=== PATIENT | male | born 1970 | race Caucasian/White ===

== ENCOUNTER 2018-12-26 15:05 | Emergency (ER) | payer OTHER ==
[~2018-12-26 15:05] MED LIST: ALBU90OI6 INH; ALBU90OI61 INH; BLOOD PRESSURE MED; Benadryl 50 mg50 MG PO; CEFU250 PO; CEPH500 PO; Crutch1 EACH MISC; DIAZ5 PO; HYDACE5 PO; LISHYD1012 PO; METPRE4DP PO; NAPR500 PO; Naprosyn500 MG PO; OXYACE5T PO; Pepcid20 MG PO; Percocet 10-321 EACH PO; Prednisone20 MG PO; RXERYTOPTH OP; RXHYD5325 PO; RXNEOPOLHC AS; Zithromax250 MG PO
== END 2018-12-26 15:25 | disposition left against medical advice (07) ==
LOC: ER 15:05
DX: Z53.21 Procedure and treatment not carried out due to patient leaving prior to being seen by health care provider (principal)

== ENCOUNTER 2019-10-18 18:41 | Emergency (ER) | payer OTHER ==
[~2019-10-18] VITALS: Ht 180.3 cm; Wt 81.7 kg
[2019-10-18] MEDS ORDERED: KEFLEX500 MG PO (19:36)
== END 2019-10-18 19:51 | disposition home or self-care (01) ==
LOC: ER 18:41
DX: S61.432A Puncture wound without foreign body of left hand, initial encounter (principal); I10 Essential (primary) hypertension; F17.210 Nicotine dependence, cigarettes, uncomplicated; Z91.040 Latex allergy status; Z91.048 Other nonmedicinal substance allergy status; W22.8XXA Striking against or struck by other objects, initial encounter
CPT/HCPCS: 73130; 99283-25; A9270-GY

== ENCOUNTER 2020-03-07 09:26 | Emergency (ER) | payer OTHER ==
[~2020-03-07 09:26] MED LIST changes: +KEFLEX500 MG PO
== END 2020-03-07 11:24 | disposition left against medical advice (07) ==
LOC: ER 09:26
DX: Z53.21 Procedure and treatment not carried out due to patient leaving prior to being seen by health care provider (principal)

== ENCOUNTER 2020-03-08 04:03 | Emergency (ER) | payer OTHER ==
[~2020-03-08] VITALS: Ht 182.9 cm; Wt 81.7 kg
[2020-03-08 04:55] LABS: BASOPHILS ABSOLUTE AUTO 0.16 K/mm3 (0.00-0.23); BASOPHILS PERCENT AUTO 2 % (0-2); EOSINOPHILS ABSOLUTE AUTO 0.42 K/mm3 (0.00-0.68); EOSINOPHILS PERCENT AUTO 5 % (0-6); Hematocrit 47.7 % (37.0-53.0); Hemoglobin 15.6 g/dL (13.5-17.5); Mean Corpuscular HGB 29.5 pg (26.0-34.0); Mean Corpuscular HGB Conc 32.7 g/dL (31.5-36.5); Mean Corpuscular Volume 90 fL (80-100); RDW Coefficient Variation 13.6 % (11.7-14.2); RDW Standard Deviation 45.3 fL (35.1-46.3); Red Blood Cell Count 5.28 M/mm3 (4.30-5.90); White Blood Cell Count 8.07 K/mm3 (4.00-11.30)
[2020-03-08 04:56] LABS: IMMATURE GRAN ABSOLUTE AUTO 0.06 K/mm3 (0.00-0.10); IMMATURE GRAN PERCENT AUTO 1 % (0-1); LYMPHOCYTES ABSOLUTE AUTO 2.98 K/mm3 (0.84-5.20); LYMPHOCYTES PERCENT AUTO 37 % (21-46); MONOCYTES ABSOLUTE AUTO 0.87 K/mm3 (0.16-1.47); MONOCYTES PERCENT AUTO 11 % (4-13); Mean Platelet Volume 9.8 fL (9.1-12.4); NEUTROPHILS ABSOLUTE AUTO 3.58 K/mm3 (1.96-9.15); NEUTROPHILS PERCENT AUTO 44 % (41-73); Platelet Count 238 K/mm3 (150-400)
[2020-03-08 05:06] LABS: CPK Creatine Kinase 73 U/L (39-308)
[2020-03-08 05:10] LABS: Alanine Aminotransfer (ALT/SGP 3095 U/L (12-78); Albumin, Blood 3.5 g/dL (3.4-5.0); Albumin/Globulin Ratio 0.9 (0.8-1.8); Alk Phos 302 U/L (50-136); Anion Gap 5 mmol/L (6-16); Aspartate Aminotrans (AST/SGOT 1326 U/L (12-37); Bilirubin, Total 3.3 mg/dL (0.1-1.0); Blood Urea Nitrogen 11 mg/dL (8-24); Bun/Creatinine Ratio 12.5 (12.0-20.0); CO2, Blood 27 mmol/L (21-32); Calcium, Blood 8.7 mg/dL (8.5-10.1); Chloride, Blood 109 mmol/L (98-108); Creatinine, Blood 0.88 mg/dL (0.60-1.20); Globulin, Blood 3.9 g/dL (2.2-4.0); Glomerular Filtration Rate >60 (60-); Glucose, Blood 83 mg/dL (70-99); Sodium, Blood 141 mmol/L (136-145); Total Protein, Blood 7.4 g/dL (6.4-8.2)
[2020-03-08 05:37] LABS: Source, Urine Clean Catch
[2020-03-08 05:41] LABS: Appearance, Urine Clear (Clear); Blood, Urine 1+ (Neg); Color, Urine Amber (P-Yellow); Glucose Qualitative, Urine Neg (Neg); Ketones, Urine Neg (Neg); Leukocyte Esterase, Urine 1+ (Neg); Nitrite, Urine Neg (Neg); Protein, Urine Neg (Neg); Specific Gravity, Urine 1.025 (1.003-1.022); Urobilinogen, Urine 2+ (Normal)
[2020-03-08 05:46] LABS: Bilirubin, Urine 1+ (Neg)
[2020-03-08 05:47] LABS: Bacteria Few /hpf; Calcium Oxalate Crystals Mod /hpf; Mucus Light (0-Heavy); Red Blood Cells, Urine 0-2 /hpf (0-2); Squamous Epithelial Cells Not Seen /hpf (Few)
[2020-03-08 08:25] LABS: International Normalized Ratio 1.06; Prothrombin Time Results 11.3 Sec (9.7-11.5)
[2020-03-10 00:10] LABS: HBSAG SCREEN Negative (Negative); HEP A AB, IGM Negative (Negative); HEP B CORE AB, IGM Negative (Negative)
== END 2020-03-08 08:31 | disposition home or self-care (01) ==
LOC: ER 04:03
PROVIDERS: Emergency Medicine
DX: K70.10 Alcoholic hepatitis without ascites (principal); F10.20 Alcohol dependence, uncomplicated; F17.210 Nicotine dependence, cigarettes, uncomplicated; Z91.09 Other allergy status, other than to drugs and biological substances; Z91.040 Latex allergy status
CPT/HCPCS: 36415; 74176; 76705; 80053; 80074; 81001; 82550; 83690; 85025; 85610; 87086; 96360; 96361; 99284-25; G0480; J7030

== ENCOUNTER 2021-10-05 21:44 | Emergency (ER) | payer OTHER ==
[~2021-10-05] VITALS: Ht 182.9 cm; Wt 83.9 kg
[2021-10-05] MEDS ORDERED: Bactrim Ds Tab1 EACH PO (22:38)
== END 2021-10-05 22:46 | disposition home or self-care (01) ==
LOC: ER 21:44
DX: L73.9 Follicular disorder, unspecified (principal); I10 Essential (primary) hypertension; F17.210 Nicotine dependence, cigarettes, uncomplicated
CPT/HCPCS: 99283; A9270

== ENCOUNTER 2021-10-09 09:43 | Emergency (ER) | payer OTHER ==
[~2021-10-09] VITALS: Ht 180.3 cm; Wt 83.9 kg
[~2021-10-09 09:43] MED LIST changes: +Bactrim Ds Tab1 EACH PO
[2021-10-09] MEDS ORDERED: Monodox100 MG PO (10:01)
[2021-10-09] MEDS ORDERED: MUPIROCIN1 GM TOP (10:01)
== END 2021-10-09 10:01 | disposition home or self-care (01) ==
LOC: ER 09:43
DX: L08.9 Local infection of the skin and subcutaneous tissue, unspecified (principal); I10 Essential (primary) hypertension; F17.210 Nicotine dependence, cigarettes, uncomplicated; Z79.899 Other long term (current) drug therapy
CPT/HCPCS: 99282

== ENCOUNTER 2024-05-27 21:16 | Emergency (ER) | payer OTHER ==
[~2024-05-27] VITALS: Ht 180.3 cm; Wt 86.2 kg
[~2024-05-27 21:16] MED LIST changes: +IBU800 MG PO; +MUPIROCIN1 GM TOP; +Monodox100 MG PO
[2024-05-27 21:21] VITALS: BP 146/88
[2024-05-27] MEDS ORDERED: NS 1,000 ML IV SCH (22:25)
[2024-05-27] MEDS ORDERED: Ondansetron HCl 2 MG / ML 2ML Vial IV ONE (22:25)
[2024-05-27 23:32] LABS: Influenza A, PCR NEGATIVE (NEGATIVE); Influenza B, PCR NEGATIVE (NEGATIVE); Resp Syncytial Virus, PCR NEGATIVE (NEGATIVE); SARS-Cov-2 (COVID-19) PCR, MMC NEGATIVE (NEGATIVE)
== END 2024-05-27 22:40 | disposition home or self-care (01) ==
LOC: ER 21:16
PROVIDERS: Student in an Organized Health Care Education/Training Program
DX: B34.9 Viral infection, unspecified (principal); I10 Essential (primary) hypertension; F17.210 Nicotine dependence, cigarettes, uncomplicated
CPT/HCPCS: 0241U; 96374; 99283-25; J2405

== ENCOUNTER 2025-07-21 20:31 | Emergency (ER) | payer OTHER ==
[~2025-07-21] VITALS: Ht 180.3 cm; Wt 83.9 kg
[2025-07-21 20:42] VITALS: BP 147/92
[2025-07-21] MEDS ORDERED: Trimethoprim/Sulfamethoxazole DS Tab PO ONE (20:50)
[2025-07-21] MEDS ORDERED: BACTRIM DS TAB1 EAC1 PO (20:51)
[2025-07-21] MEDS ORDERED: CEPH500 PO (20:51)
== END 2025-07-21 21:17 | disposition home or self-care (01) ==
LOC: ER 20:31
DX: L02.811 Cutaneous abscess of head [any part, except face] (principal); Z79.899 Other long term (current) drug therapy; Z79.2 Long term (current) use of antibiotics; I10 Essential (primary) hypertension; F17.210 Nicotine dependence, cigarettes, uncomplicated
CPT/HCPCS: 99282; A9270